=== PATIENT | female | born 1990 | race Caucasian/White ===

== ENCOUNTER 2022-03-19 06:20 | Emergency (ER) | payer OTHER ==
[~2022-03-19] VITALS: Ht 149.9 cm; Wt 79.5 kg
[2022-03-19] MEDS ORDERED: dexamethasone 4mg tablet PO ONE (08:25)
[2022-03-19] MEDS ORDERED: ipratropium/albuterol 3ml nebule NEB ONE (08:25)
[2022-03-19] MEDS ORDERED: azithromycin 250mg tablet PO ONE (08:25)
[2022-03-19] MEDS ORDERED: ALBU6.7H9 INH (08:33)
[2022-03-19] MEDS ORDERED: AZIT250T PO (08:33)
[2022-03-19 08:36] VITALS: BP 141/92
== END 2022-03-19 09:39 | disposition home or self-care (01) ==
LOC: EDBD 06:21 → ER 06:21
DX: J20.9 Acute bronchitis, unspecified (principal); J12.9 Viral pneumonia, unspecified; Z98.890 Other specified postprocedural states; Z91.018 Allergy to other foods; Z79.899 Other long term (current) drug therapy
CPT/HCPCS: 71045; 94640; 94760; 99283

== ENCOUNTER 2022-05-24 07:28 | Emergency (ER) | payer OTHER ==
[~2022-05-24] VITALS: Ht 149.9 cm; Wt 79.5 kg
[~2022-05-24 07:28] MED LIST: ALBU6.7H9 INH
[2022-05-24 07:31] VITALS: BP 149/96
[2022-05-24] MEDS ORDERED: dexamethasone sod phosphate 10mg/ml inj PO STA (07:57)
[2022-05-24] MEDS ORDERED: ketorolac trometh inj. 60 MG/2 ML VIAL IM ONE (08:00)
[2022-05-24] MEDS ORDERED: AMOX-580 PO (08:00)
[2022-05-24] MEDS ORDERED: amox tr/potassium clavulanate 875/125mg TAB PO ONE (08:00)
== END 2022-05-24 08:21 | disposition home or self-care (01) ==
LOC: ER 07:29
DX: J02.9 Acute pharyngitis, unspecified (principal); Z98.891 History of uterine scar from previous surgery; Z91.018 Allergy to other foods; Z79.2 Long term (current) use of antibiotics; Z79.899 Other long term (current) drug therapy
CPT/HCPCS: 87081; 87880; 96372; 99283; J1100; J1885